=== PATIENT | male | born 1990 | race Caucasian/White ===

== ENCOUNTER → 2017-09-10 | Outpatient (CLI) | payer OTHER ==
--- NOTE | 2017-09-10 19:04 | CT ---
EXAMINATION TYPE: CT sinus wo con DATE OF EXAM: 09/10/2017 COMPARISON: NONE HISTORY: Cyst to left maxillary sinus. CT DLP: 673.2 mGycm. Automated Exposure Control for Dose Reduction was Utilized. TECHNIQUE: CT scan of the sinuses is performed without contrast, axial images are obtained, coronal r eformatted images are also reviewed. FINDINGS: There is mucosal thickening in the maxillary sinuses. There is opacification of left maxill luis sinus. There is a 1.7 cm mucous retention cyst in the right maxillary sinus. There is moderate mu cosal thickening in the ethmoid sinus on the left side more than the right. There is opacification of the left frontal sinus. Sphenoid sinus appears normal. Orbital margins are intact. Left side sinusitis is somewhat expansile in the ethmoid region. I see no focal bone destruction. CONCLUSION: There is extensive left-sided sinusitis as above. There is somewhat expansile appearance of the opaci fication in the left ethmoid sinus that raises the possibility of a mucocele development. Follow-up i s recommended.
== END | disposition home or self-care (01) ==
LOC: RADCTMAIN 18:29
PROVIDERS: ATTEND Dentist Oral and Maxillofacial Surgery
DX: J32.9 Chronic sinusitis, unspecified (principal)
CPT/HCPCS: 70486